=== PATIENT | male | born 1950 | race Caucasian/White ===

== ENCOUNTER → 2016-05-09 | Outpatient (CLI) | payer MEDICARE | LOC: KOH-I 12:52 | DX: J32.8 Other chronic sinusitis (principal); J32.4 Chronic pansinusitis | CPT/HCPCS: 70486 ==

== ENCOUNTER 2020-07-17 17:07 | Emergency (ER) | payer OTHER | END 2020-07-17 18:20 | disposition left against medical advice (07) | LOC: ER1 17:07 | DX: Z53.21 Procedure and treatment not carried out due to patient leaving prior to being seen by health care provider (principal) ==